=== PATIENT | male | born 1955 | race Caucasian/White ===

== ENCOUNTER 2022-05-06 08:40 | Outpatient (CLI) | payer MEDICARE, SELFPAY ==
[2022-05-06 13:39] LABS: Chloride* 108 mmol/L (96-114); Potassium* 4.6 mmol/L (3.6-5.1); Sodium* 144 mmol/L (135-149)
[2022-05-06 13:42] LABS: Blood Urea Nitrogen* 17 mg/dL (7-30); Carbon Dioxide* 30 mmol/L (20-32); Cholesterol* 177 mg/dL (90-199); Estimated Glomerular Filt Rate 83 ml/min; Glucose* 86 mg/dL (60-115); Triglycerides* 117 mg/dL (40-149)
[2022-05-06 13:43] LABS: Calcium* 9.4 mg/dL (8.4-10.6); HDL Cholesterol* 38 mg/dL (>=40); LDL Cholesterol Calculated 116 mg/dL (<100)
[2022-05-06 14:14] LABS: PSA Screen* 4.53 ng/mL (0.10-4.00)
== END 2022-05-06 08:41 | disposition home or self-care (01) ==
PROVIDERS: PCP Family Medicine; Visit Provider Family Medicine
DX: Z00.00 Encounter for general adult medical examination without abnormal findings (principal); I10 Essential (primary) hypertension; Z12.5 Encounter for screening for malignant neoplasm of prostate; Z13.6 Encounter for screening for cardiovascular disorders; Z13.89 Encounter for screening for other disorder
CPT/HCPCS: 80048; 80061; 84153

== ENCOUNTER 2022-06-25 09:56 | Outpatient (CLI) | payer MEDICARE, SELFPAY | END 2022-06-25 09:57 | disposition home or self-care (01) | LOC: OP CLINIC 09:56 | PROVIDERS: PCP Family Medicine; Visit Provider Internal Medicine | DX: Z12.11 Encounter for screening for malignant neoplasm of colon (principal); K63.5 Polyp of colon | CPT/HCPCS: 45380; 45385; 88305; J2250; J3010 ==

== ENCOUNTER 2022-07-30 08:10 | Outpatient (CLI) | payer MEDICARE, SELFPAY | END 2022-07-30 08:11 | disposition home or self-care (01) | LOC: NFLDREF 21:46 | PROVIDERS: PCP Family Medicine; Referring Provider Family Medicine; Visit Provider Family Medicine | DX: R97.20 Elevated prostate specific antigen [PSA] (principal) | CPT/HCPCS: 84153 ==

== ENCOUNTER 2023-05-20 09:06 | Outpatient (CLI) | payer MEDICARE, SELFPAY ==
--- OUTSIDE RECORDS SUMMARY | 2023-05-20 09:20 | XMS_ITS | Clinical Summary ---
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
[2023-05-20 09:49] LABS: Hemoglobin* 16.2 gm/dL (13.5-17.5)
[2023-05-20 14:21] LABS: Chloride* 107 mmol/L (96-114)
[2023-05-20 14:22] LABS: Potassium* 4.7 mmol/L (3.6-5.1); Sodium* 143 mmol/L (135-149)
[2023-05-20 14:24] LABS: Estimated Glomerular Filt Rate 82 ml/min
[2023-05-20 14:25] LABS: Anion Gap 6 mEq/L (7-15); Blood Urea Nitrogen* 16 mg/dL (7-30); Calcium* 9.3 mg/dL (8.4-10.6); Carbon Dioxide* 30 mmol/L (20-32); Glucose* 94 mg/dL (60-115)
[2023-05-20 15:00] LABS: PSA Diagnostic* 5.34 ng/mL (0.10-4.00)
== END 2023-05-20 09:07 | disposition home or self-care (01) ==
PROVIDERS: PCP Family Medicine; Visit Provider Family Medicine
DX: I10 Essential (primary) hypertension (principal); R97.20 Elevated prostate specific antigen [PSA]; Z13.0 Encounter for screening for diseases of the blood and blood-forming organs and certain disorders involving the immune mechanism
CPT/HCPCS: 80048; 84153; 85018

== ENCOUNTER 2024-04-07 08:43 | Outpatient (CLI) | payer MEDICARE, SELFPAY | END 2024-04-07 08:44 | disposition home or self-care (01) | PROVIDERS: PCP Family Medicine; Visit Provider Family Medicine | DX: R97.20 Elevated prostate specific antigen [PSA] (principal); I10 Essential (primary) hypertension; R82.90 Unspecified abnormal findings in urine; Z12.5 Encounter for screening for malignant neoplasm of prostate | CPT/HCPCS: 80048; 84153; 87086 ==

== ENCOUNTER 2024-04-16 18:10 | Emergency (ER) | payer MEDICARE, SELFPAY ==
--- OUTSIDE RECORDS SUMMARY | 2024-04-16 18:12 | XMS_ITS | Data Portability ---
Author Organization [facility], [facility] Address [address] [place] [address] Assessment No assessment recorded. Plan of Treatment Reminders Order Date Submit Date Provider Last Modified By Organization Details Last Modified Time Details Appointments None record ed. Lab None record ed. Referral None record ed. Procedures None record ed. Surgeries None record ed. Imaging None record ed. Medication Orders None record ed. Patient TargetsNo targets recorded. Patient InstructionsNo instructions recorded. Reason for Referral None Reported. Results Created Date Observation Date Name Description Value Unit Range Abnormal Flag Note LastModifiedBy Organization Detail LastModifiedTime Result Notes None recorded. Problems Name Problem SNOMED Code Status Onset Date Resolution Date Notes Provider Name and Address Organization Details Recorded Time Prostate specific antigen above reference range 050777004 Active 023 Pedrito Stinson MD [address], [address] [place] [address] Urology 3 14:36:48 Problem Notes None recorded. Procedures Surgical History Date Name Laterality Status Provider Name and Address Organization Details Recorded Time Colonoscopy completed [facility] 09/04/2022 09:43:34 Hernia Repair completed [facility] 09/04/2022 09:43:42 Imaging Results None recorded. Procedure Notes None recorded. Medical Equipment None Reported. Allergies No known drug allergies Medications Name Sig Start Date Stop Date Status Note LastModified by Organization Details LastModified Time lisinopril 10 mg tablet TAKE ONE TABLET BY MOUTH ONCE DAILY active Not Available Not Available No t Available GaviLyte-G 236 gram-22.74 gram-6.74 gram-5.86 gram oral solution MIX AND DRINK 240ML BY MOUTH EVERY 10 MINUTES UNTIL FECAL EFFLUENT IS CLEAR 09/04 completed Not Available Not Available Not Available Sodium Fluoride 5000 Plus 1.1 % dental cream USE A PEA SIZED AT BEDTIME DIRECTED 2022 active Not Available Not Available Not Avai lable Vitals Date Recorded Body height Body mass index (BMI) Body weight Provider Name and Address Organization Details Last Updated DateTime 09/04/2022 182.88 cm 29.2 kg/m2 37585.36 g Berta Genao [facility] 09/04/2022 09:42:05 Date Recorded Body height Body mass index (BMI) Body weight Provider Name and Address Organization Details Last Updated DateTime 12/09/2022 182.88 cm 29.2 kg/m2 51157.36 g Gladys JOY [facility] 12/09/2022 09:16:52 Social History Question Answer Notes LastModified by Organizat ion Details LastModified Time Tobacco Smoking Status Never Smoker Berta morales [facility] 09/04/2022 09:43:17 What Is Your Level Of Alcohol Consumption? None Information not available 09/04/2022 What Is Your Level Of Caffeine Consumption? Moderate Information not available 09/04/2022 What Was The Date Of Your Most Recent Tobacco Screening? 12/09/2022 [email or web address] Information not available 12/09/2022 Do You Use Any Illicit Or Recreational Drugs? No [email or web address] Information not available 12/09/2022 Has Tobacco Cessation Counseling Been Provided? No [email or web address] Information not available 12/09/2022 Do You Or Have You Ever Used Any Other Forms Of Tobacco Or Nicotine? No [email or web address] Information not available 12/09/2022 Sex: Unknown Functional Status None recorded. Mental Status None recorded. Family History Nothing Reported Notes:adopted Medical History Condition Response Other N High Blood Pressure Y Kidney Stones N Lung Disease N Depression N GERD/Acid Reflux N Diabetes N Sexually Transmitted Infection N Bleeding Disorder N Cancer N High Cholesterol N Heart Disease N Immunizations Vaccine Type Date Status Note Provider Nam e and Address Organization Details Recorded Time Influenza, split virus, quadrivalent, preservative 9 completed Gladys morales [facility] 12/09/2022 09:16:58 zoster recombinant 2 completed Gladysaugust null, [facility] 12/09/2022 09:16:58 zoster recombinant 2 completed August null, [facility] 12/09/2022 09:16:58 Influenza, adjuvanted, quadrivalent, PF 2 completed August null, [facility] 12/09/2022 09:16:58 Influenza, adjuvanted, quadrivalent, PF 2 completed August null, [facility] 12/09/2022 09:16:58 COVID-19, mRNA, LNP-S, PF, 100 mcg/0.5mL dose or 50 mcg/0.25mL dose 1 completed August null, [facility] 12/09/2022 09:16:58 COVID-19, mRNA, LNP-S, PF, 100 mcg/0.5mL dose or 50 mcg/0.25mL dose 1 completed August null, [facility] 12/09/2022 09:16:58 COVID-19, mRNA, LNP-S, PF, 100 mcg/0.5mL dose or 50 mcg/0.25mL dose 2 completed August null, [facility] 12/09/2022 09:16:58 COVID-19, mRNA, LNP-S, PF, 100 mcg/0.5mL dose or 50 mcg/0.25mL dose 1 completed August null, [facility] 12/09/2022 09:16:58 Pneumococcal conjugate PCV20, polysaccharide [id number] conjugate, adjuvant, PF 3 completed August null, [facility] 12/09/2022 09:16:58 COVID-19, mRNA, LNP-S, bivalent, PF, 30 mcg/0.3 mL dose 2 completed Gladys August null, [facility] 12/09/2022 09:16:58 Tdap 8 completed August null, [facility] 12/09/2022 09:16:58 Influenza, split virus, quadrivalent, PF 2 completed Gladys August carmen, [facility] 12/09/2022 09:16:58 Influenza, split virus, quadrivalent, PF 0 completed Gladys August carmen, [facility] 12/09/2022 09:16:58 Past Encounters Encounter ID Performer Location Encounter Start Date Encounter Closed Date Diagnosis/Indication Diagnosis SNOMED-CT Code Diagnosis ICD10 Code [id number] Pedrito Stinson MD [facility] [address] [place] [address] 09/04/2022 09:14:09 09/11/2022 15:21:10 Prostate specific antigen above reference range 779719218 R97.20 [id number] Pedrito Stinson MD [facility] [address] [place] [address] 12/09/2022 09:14:27 12/12/2022 15:02:19 Prostate specific antigen above reference range 600221317 R97.20 Health Concerns Section Related Observation LastModified by Organization Detai ls LastModified Time None Recorded Concern Status LastModified by Organization Details LastModified Time None Recorded Advance Directives Directive None Recorded Payers Encounter Date Sequence Insurance Name Policy Number Policy Gupta Covered Member ID Gupta Member ID Guarantor Name 09/04/2022 2 [place] [employer] Edward G Nytes [id number] 3 Edward G Nytes 09/04/2022 1 [place] [id number] Edward G Nytes [id number] Edward G Nytes 12/09/2022 2 [place] [employer] Edward G Nytes [id number] Edward G Nytes 12/09/2022 1 [place] [id number] Edward G Nytes [id number] Edward G Nytes Notes Date Note Type Note Provider Name and Address Organization Details Recorded Time 09/04/2022 text/html New patient referred for elevated PSA. I reviewed the most recent clinic notes from Dr. Mateo Sprague dated 07/31/2022 including a PSA of 5.48 at that time. Previous PSA was about 4.5 in April 2022 and before that, per the patient's report, baseline of about 4.0. Those records are not available. He denies any urinary symptoms. He is adopted with no knowledge of any family history. Past abdominal surgery was umbilical hernia repair about 3 years ago. He has chronic Peyronie's disease and erectile dysfunction and is not sexually active. Pedrito Stinson MD [address] [place] [address],[address], [place], [address], [facility] 09/04/2022 14:38:07 12/09/2022 text/html 09/04/22: New patient referred for elevated PSA. I reviewed the most recent clinic notes from Dr. Mateo Sprague dated 07/31/2022 including a PSA of 5.48 at that time. Previous PSA was about 4.5 in April 2022 and before that, per the patient's report, baseline of about 4.0. Those records are not available. He denies any urinary symptoms. He is adopted with no knowledge of any family history. Past abdominal surgery was umbilical hernia repair about 3 years ago. He has chronic Peyronie's disease and erectile dysfunction and is not sexually active. 12/09/22: Prostate exam was normal last visit -- gland measured about 50 to 60 g. Follow-up PSA is down to 4.21 on 12/03/2022. He denies any bothersome urinary symptoms. Pedrito Stinson MD [address] [place] [address],[address], [place], [address], [facility] 12/09/2022 09:37:09
[2024-04-16 18:24] VITALS: BP 157/104; PULSE 98; RESP 18; TEMP 35.9; O2SAT 95; BMI 29.3
--- NOTE | 2024-04-16 18:37 | ED.GENADULT ---
HPI - General Adult General Date Seen: 04/16/24 Chief complaint: Urogenital Problems, Male Stated complaint: trouble urinating Time Seen by Provider: 04/16/24 18:31 Source: patient Related Data Previous Rx's ?Medication ?Instructions ?Recorded lisinopril 10 mg tablet 10 mg PO DAILY #90 tabs 04/07/24 Allergies Allergy/AdvReac Type Severity Reaction Status Date / Time ragweed pollen Allergy Unknown Unknown Verified 04/07/24 08:09 PFSH PFS Surgical History Status post tonsillectomy and adenoidectomy ?Z90.89 - Acquired absence of other organs (ICD-10) Status post right inguinal hernia repair ?Z98.890 - Other specified postprocedural states (ICD-10) ?Z87.19 - Personal history of other diseases of the digestive system (ICD-10) Status post left inguinal hernia repair ?Z98.890 - Other specified postprocedural states (ICD-10) ?Z87.19 - Personal history of other diseases of the digestive system (ICD-10) History of umbilical hernia repair ?Z98.890 - Other specified postprocedural states (ICD-10) ?Z87.19 - Personal history of other diseases of the digestive system (ICD-10) Social History (Updated 04/09/24 @ 10:32 by Cecy Islas ~ CT[facility]) 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 Catheter was placed with 800 mL out and he feels significantly improved. Discussed with him he will likely need urology follow-up at some point in the near future. For now recommended that we leave the catheter in, follow-up with regular clinic next week for trial of void. Return any time for recurrent urinary retention or new symptoms such as fevers, chills, vomiting weakness etcetera. Vital Signs Vital signs: Initial Vital Signs Temperature 96.7 F L 04/16/24 18:24 Temperature Source Temporal Artery Scan 04/16/24 18:24 Pulse Rate 98 04/16/24 18:24 Respiratory Rate 18 04/16/24 18:24 Blood Pressure 157/104 H 04/16/24 18:24 Blood Pressure Mean 121 H 04/16/24 18:24 Blood Pressure Position Sitting 04/16/24 18:24 Pulse Oximetry 95 04/16/24 18:24 Oxygen Delivery Method Room Air 04/16/24 18:24 Vital Signs Temperature 96.7 F L 04/16/24 18:24 Pulse Rate 98 04/16/24 18:24 Respiratory Rate 18 04/16/24 18:24 Blood Pressure 157/104 H 04/16/24 18:24 Pulse Oximetry 95 04/16/24 18:24 Oxygen Delivery Method Room Air 04/16/24 18:24 Temperature 96.7 F L 04/16/24 18:24 Pulse Rate 98 04/16/24 18:24 Respiratory Rate 18 04/16/24 18:24 Blood Pressure 157/104 H 04/16/24 18:24 Pulse Oximetry 95 04/16/24 18:24 Oxygen Delivery Method Room Air 04/16/24 18:24 Medical Decision Making Lab Data Labs: Lab Results 04/16/24 Range/Units 18:30 Urine Color Yellow (Yellow) Urine Appearance Clear (Clear) Urine pH 5.5 (5.0-8.5) Ur Specific [place] 1.025 (1.000-1.030) Urine Protein 2+ A (Negative) Urine Glucose (UA) Negative (Negative) Urine Ketones Negative (Negative) Urine Blood Trace-intact A (Negative) Urine Nitrite Negative (Negative) Urine Bilirubin Negative (Negative) Urine Urobilinogen 0.2 (0.2-1.0) Ur Leukocyte Esterase Negative (Negative) Urine RBC 0-2 (0-2) Urine WBC 0-2 (0-5) Ur Squamous Epith Cells Few (None-Few) Urine Bacteria None (None) Discharge Plan Discharge Clinical Impression: Acute urinary retention Patient Disposition: Home, Self-Care Condition: Improved Instructions: Urinary Retention in Men (ED) Additional Instructions: Would recommend leaving the catheter in place for now. Follow-up with primary care next week for trial of void. You may need urology follow-up as well. Return any time for recurrent retention, new symptoms such as fevers, chills, vomiting or weakness. Prescriptions: No Action lisinopril 10 mg tablet 10 mg PO DAILY Qty: 90 3RF Follow Up/Referrals: Mateo Sprague MD [Primary Care Provider] - Stand Alone Forms: [email or web address] Info Instructions
[2024-04-16 18:39] LABS: Appearance Urine Clear (Clear); Bilirubin Urine Negative (Negative); Blood Urine Trace-intact (Negative); Color Urine Yellow (Yellow); Glucose Urine Negative (Negative); Ketones Urine Negative (Negative); Leukocyte Esterase Urine Negative (Negative); Nitrite Urine Negative (Negative); Protein Urine 2+ (Negative); Specific Gravity Urine 1.025 (1.000-1.030); Urobilinogen Urine 0.2 (0.2-1.0); pH Urine 5.5 (5.0-8.5)
[2024-04-16 18:40] LABS: RBC Urine 0-2 (0-2); Squamous Epithelial Cell Urine Few (None-Few); WBC Urine 0-2 (0-5)
[2024-04-16 20:29] VITALS: BP 140/88; PULSE 95; RESP 16
== END 2024-04-16 20:30 | disposition home or self-care (01) ==
PROVIDERS: Emergency Provider Emergency Medicine; PCP Family Medicine
DX: R33.9 Retention of urine, unspecified (principal)
CPT/HCPCS: 51702; 81001; 99282; 99283

== ENCOUNTER 2025-03-22 15:39 | Outpatient (CLI) | payer MEDICARE, SELFPAY | END 2025-03-22 15:40 | disposition home or self-care (01) | PROVIDERS: PCP Family Medicine; Visit Provider Family Medicine | DX: I10 Essential (primary) hypertension (principal); R97.20 Elevated prostate specific antigen [PSA]; Z13.21 Encounter for screening for nutritional disorder; Z13.29 Encounter for screening for other suspected endocrine disorder | CPT/HCPCS: 80048; 82607; 84153; 84443 ==